=== PATIENT | male | born 1955 | race African-American/Black ===

== ENCOUNTER 2016-06-13 11:06 | Outpatient (CLI) ==
[2016-01-16 20:28] VITALS: BMI 32.9
--- NOTE | 2016-06-13 12:16 | DI ---
EXAM: Four views of the lumbar spine HISTORY: Lower back pain. COMPARISON: None FINDINGS: There is no acute compression fracture or subluxation of the lumbosacral spine. There is disc space narrowing and osteophyte formation at the lumbosacral junction. There is minimal change at L3-L4 and L4-L5. There is scattered facet arthropathy throughout the lumbar spine with narrowing at L4-L5 and L5-S1 neural foramina. The soft tissues are unremarkable. Surgical clips are noted i n right upper quadrant. IMPRESSION: 1. No acute compression fracture or subluxation of the lumbar spine. 2. Multilevel degenerative disease of the spine most pronounced L5-S1 with changes contributing to neural foraminal narrowing at L4-L5 and L5-S1.
--- NOTE | 2016-06-13 12:17 | DI ---
EXAM: Right hip two-view HISTORY: Right hip pain COMPARISON: 03/04/2015 FINDINGS: No fracture or dislocation. Mild narrowing right hip joint. Redemonstration well margin ated linear ossification medial thigh that is likely due to old trauma/heterotopic ossification. No change from prior examination. IMPERSSION: 1. No fracture or dislocation. 2. Mild osteoarthritis right hip. 3. Well marginated ossification medial thigh, likely due to old trauma/heterotopic ossification.
== END 2016-06-13 11:07 | disposition home or self-care (01) ==
LOC: RAD 11:06
PROVIDERS: ATTEND Internal Medicine
DX: M54.5 Low back pain (principal); M25.551 Pain in right hip

== ENCOUNTER 2017-05-30 12:15 | Outpatient (CLI) ==
[2016-01-16 20:28] VITALS: BMI 32.9
== END 2017-05-30 12:16 | disposition home or self-care (01) ==
LOC: LAB 12:15
PROVIDERS: ATTEND Internal Medicine
DX: E11.9 Type 2 diabetes mellitus without complications (principal)
CPT/HCPCS: 82043

== ENCOUNTER 2020-06-12 06:45 | Observation (INO) ==
--- NOTE | 2020-06-12 07:05 | ED.PDOC ---
General ED Provider: Dr. LAST PAINTER Chief Complaint: Arrhythmia Stated Complaint: my heart was beating funny Time Seen by Provider: 06/12/20 07:01 Mode of Arrival: Walk-In Information Source: Patient Primary Care Provider: SELAM SIEGEL Nursing and Triage Documentation Reviewed and Agree: Yes Does patient meet sepsis criteria?: No System Inflammatory Response Syndrome: Not Applicable Sepsis Protocol: For patient's 13 years and over: Temp is 96.8 and below OR 101 and greater Pulse >90 BPM Resp >20/minute Acutely Altered Mental Status Are patient's symptoms suggestive of a new infection, such as: -Pneumonia -Skin, Soft Tissue -Endocarditis -UTI -Bone, Joint Infection -Implantable Device -Acute Abdominal Infection -Wound Infection -Meningitis -Blood Stream Catheter Infection -Unknown Cardiovascular Complaint Exam Palpitations Complaint/Exam Onset/Duration: one week Symptoms Are: Still present Timing: Intermittent Initial Severity: Mild Current Severity: Moderate Character: Reports Irregular and Pounding Aggravating: Reports None Alleviating: Reports None Associated Signs and Symptoms: Reports Dizziness and Shortness of breath Related Surgical History: Reports CABG Cardiac Risk Factors: Reports Hypertension and Diabetes Pulmonary Embolism Risk Factors: Reports None Thyroid Exam: Normal Differential Diagnoses: CAD and Hypokalemia Quality Indicator For Non-Traumatic Chest Pain/Syncope: EKG Performed Review of Systems Review Of Systems Constitutional: Reports No symptoms Eyes: Reports No symptoms Ears, Nose, Mouth, Throat: Reports No symptoms Respiratory: Reports No symptoms Cardiac: Reports Palpitations GI: Reports No symptoms : Reports No symptoms Musculoskeletal: Reports No symptoms Skin: Reports No symptoms Neurological: Reports No symptoms Endocrine: Reports No symptoms Hematologic/Lymphatic: Reports No symptoms All Other Systems: Reviewed and Negative [facility] Social History Smoking and tobacco status: Current some day smoker Physical Exam Physical Exam Appearance: Reports Well-appearing Ill-appearing: None Pain Distress: None Eyes: Reports JORGE LUIS, EOMI and Conjunctiva clear ENT: Reports Ears normal, Nose normal and Oropharynx normal Neck: Supple Respiratory: Reports Airway patent, Breath sounds clear and Breath sounds equal Cardiovascular: Reports RRR, Pulses normal, No rub and No murmur GI/: Reports Soft, Nontender, No masses and Bowel sounds normal Musculoskeletal: Reports Normal strength, ROM intact, No edema and No calf tenderness Skin: Reports Warm, Dry and Normal color Neurological: Reports Sensation intact, Motor intact, Reflexes intact, Cranial nerves intact, Alert and Oriented Psychiatric: Reports Affect appropriate and Mood appropriate Interpretation Radiology Interpretation Radiology Interpretation By: Radiologist Radiology Results: Negative Exam Interpreted: Portable CXR EKG Interpretation Time of EKG #1: 08:09 Rate: Normal Rhythm: Sinus Ectopy: None [place]: NL ST Segment: Normal Interpretation: nsr Re-Evaluation Re-Evaluation Time of Re-Evaluation: 08:09 Status: Improved Vital Signs Stable: Yes Pain Level: 0 Appearance: NAD Lungs: Clear Skin: Warm and Dry Neuro: Alert and Oriented X3 CV: RRR Physician Notification Case Discussed Physician Notified: dr siegel Time of Notification: 08:10 Critical Care Note Critical Care Note Total Critical Care Time (mins): 15 Course Course Hematology/Chemistry: 06/12/20 07:07 06/12/20 07:07 Orders, Labs, Meds: Lab Review 06/12/20 06/12/20 06/12/20 07:07 07:07 07:07 WBC 8.72 RBC 4.61 L Hgb 14.2 Hct 39.8 L MCV 86.3 MCH 30.8 MCHC 35.7 H RDW Coeff of Funmilayo 14.8 Plt Count 206 Immature Gran % (Auto) 0.5 Neut % (Auto) 66.3 Lymph % (Auto) 20.9 [place] % (Auto) 10.0 Eos % (Auto) 1.7 Baso % (Auto) 0.6 Neut # (Auto) 5.8 Lymph # (Auto) 1.8 [place] # (Auto) 0.9 Eos # (Auto) 0.2 Baso # (Auto) 0.1 Immature Gran # (Auto) 0.0 Sodium 140.3 Potassium 3.62 Chloride 103.7 Carbon Dioxide 28.9 Anion Gap 11.32 BUN 19.6 Creatinine 1.23 H Estimated GFR (MDRD) 72.00 BUN/Creatinine Ratio 15.93 Glucose 130.8 H Calcium 8.79 Magnesium 1.68 Total Bilirubin 0.39 AST 29.7 ALT 32.0 Alkaline Phosphatase 78.9 Total Creatine Kinase 254.3 H CK-MB (CK-2) 2.520 H CK-MB (CK-2) % 0.9900 Troponin I < 0.012 Total Protein 7.28 Albumin 4.20 Globulin 3.08 Albumin/Globulin Ratio 1.36 TSH Free T4 0.73 L 04/25/21 07:07 WBC RBC Hgb Hct MCV MCH MCHC RDW Coeff of Funmilayo Plt Count Immature Gran % (Auto) Neut % (Auto) Lymph % (Auto) [place] % (Auto) Eos % (Auto) Baso % (Auto) Neut # (Auto) Lymph # (Auto) [place] # (Auto) Eos # (Auto) Baso # (Auto) Immature Gran # (Auto) Sodium Potassium Chloride Carbon Dioxide Anion Gap BUN Creatinine Estimated GFR (MDRD) BUN/Creatinine Ratio Glucose Calcium Magnesium Total Bilirubin AST ALT Alkaline Phosphatase Total Creatine Kinase CK-MB (CK-2) CK-MB (CK-2) % Troponin I Total Protein Albumin Globulin Albumin/Globulin Ratio TSH 1.570 Free T4 Orders Category Date Time Status EKG-(ED ONLY) Stat CARDIO 06/12/20 06:57 Completed ED INDUSTRIAL [employer]GY ENGINEER APPLIED .ONCE EMERGENCY 06/12/20 06:57 Active CBC W/ AUTO DIFF Stat LAB 06/12/20 07:07 Completed COMPREHENSIVE METABOLIC PANEL Stat LAB 06/12/20 07:07 Completed CREATINE KINASE Stat LAB 06/12/20 07:07 Completed FREE T4 (FREE THYROXINE) Stat LAB 06/12/20 07:07 Completed MAGNESIUM Stat LAB 06/12/20 07:07 Completed RESPIRATORY PANEL 2.1 (PCR) Stat LAB 06/12/20 07:20 Received THYROID STIMULATING HORMONE Stat LAB 06/12/20 07:07 Completed TROPONIN I Stat LAB 06/12/20 07:07 Completed 0.9 % Sodium Chloride [Saline Flush] MEDS 06/12/20 06:57 Active 1 syr IVF PRN PRN CHEST, 1V AP ONLY Stat RADS 06/12/20 06:57 Completed Medications Generic Name Dose Route Start Last Admin Trade Name Freq PRN Reason Stop Dose Admin Sodium Chloride 1 syr 06/12/20 06:57 0.9% Sodium Chloride 10 Ml Disp.Syrin IVF PRN PRN To flush IV Vital Signs: Temp Pulse Resp BP Pulse Ox 06/12/20 06:46 97.7 F 88 18 164/81 H 97 CHICHO Risk Score CHICHO Risk Score: Risk Score Odds of by 30D 0 0.1 (0.1-0.2) 1 0.3 (0.2-0.3) 2 0.4 (0.3-0.5) 3 0.7 (0.6-0.9) 4 1.2 (1.0-1.5) 5 2.2 (1.9-2.6) 6 3.0 (2.5-3.6) 7 4.8 (3.8-6.1) Discharge Plan Discharge Patient Disposition: PLACED OBSERVATION Discharge Problem: Dysthymia Prescriptions: No Action metformin 500 MG tablet 500 mg PO BIDWM RF: 0 diltiazem HCl 90 MG tablet 180 mg PO BID RF: 0 metoprolol succinate [Toprol XL] 50 MG tablet extended release 24 hr 50 mg PO DAILY RF: 0 pravastatin 40 mg Tablet 40 mg PO DAILY RF: 0 chlorthalidone 50 mg Tablet 50 mg PO DAILY RF: 0 aspirin 81 mg Tablet,Delayed Release (Dr/Ec) 81 mg PO DAILY RF: 0 ascorbic acid (vitamin C) [Vitamin C] 500 mg Tablet 500 mg PO DAILY RF: 0 benazepril 40 mg Tablet 40 mg PO DAILY RF: 0 cholecalciferol (vitamin D3) [Vitamin D3] 125 mcg (5,000 unit) Tablet 125 mcg PO DAILY RF: 0 ED Provider: LAST PAINTER Condition: Good Physician Progress Note: []
[2020-06-12 07:08] LABS: BASOPHILS # (AUTO) 0.1 K/uL (0-0.2); BASOPHILS % (AUTO) 0.6 % (0.0-3.0); EOSINOPHILS # (AUTO) 0.2 K/ul (0.0-0.7); EOSINOPHILS % (AUTO) 1.7 % (0.0-7.0); HEMATOCRIT 39.8 % (42.0-52.0); HEMOGLOBIN 14.2 g/dl (14.0-18.0); IMMATURE GRANULOCYTE % (AUTO) 0.5 % (0.0-5.0); LYMPHOCYTES # (AUTO) 1.8 K/uL (0.60-3.4); LYMPHOCYTES % (AUTO) 20.9 (10.0-50.0); MEAN CORPUSCULAR HEMOGLOBIN 30.8 pg (27.0-31.0); MEAN CORPUSCULAR HGB CONC 35.7 (31.8-35.4); MEAN CORPUSCULAR VOLUME 86.3 fl (80.0-94.0); MONOCYTES # (AUTO) 0.9 K/uL (0.4-2.0); NEUTROPHILS # (AUTO) 5.8 K/ul (2.0-6.9); NEUTROPHILS % (AUTO) 66.3 % (42.2-75.2); PLATELET COUNT 206 10^3/uL (140-440); RDW COEFFICIENT OF VARIATION 14.8 % (11.6-14.8); RED BLOOD COUNT 4.61 10^6/ul (4.70-6.10); WHITE BLOOD COUNT 8.72 K/ul (4.2-10.2)
[2020-06-12 07:21] LABS: ALKALINE PHOSPHATASE 78.9 U/L (56-119); ASPARTATE AMINO TRANSFERASE 29.7 U/L (17-59); BILIRUBIN,TOTAL 0.39 mg/dL (0.2-1.3); BLOOD UREA NITROGEN 19.6 mg/dL (9-20); CALCIUM 8.79 mg/dL (8.4-10.2); CARBON DIOXIDE 28.9 mmol/L (22-30.0); CHLORIDE 103.7 mmol/L (98-107); CREATINE KINASE 254.3 U/L (55-170); CREATININE 1.23 mg/dL (0.60-1.10); GLUCOSE 130.8 mg/dL (74-106); MAGNESIUM 1.68 mg/dL (1.6-2.3); POTASSIUM 3.62 mmol/L (3.5-5.1); SODIUM 140.3 mmol/L (134.5-145); TOTAL PROTEIN 7.28 g/dL (6.3-8.2)
--- NOTE | 2020-06-12 07:24 | DI ---
EXAM: Single frontal view of the chest HISTORY: Palpitation. COMPARISON: Chest x-ray 09/13/2012 and multiple priors FINDINGS: Cardiomediastinal silhouette is unchanged with intact sternotomy wires. There is no pneumo thorax or effusion. There is no consolidation, nodule or mass. The osseous structures are unremarka ble. IMPRESSION: No acute cardiopulmonary process
[2020-06-12 07:32] LABS: TROPONIN I < 0.012 ng/ml (0.0000-0.120)
[2020-06-12 07:34] LABS: BORDETELLA PARAPERTUSSIS (PCR) NOT DETECTED (NOT DETECT); BORDETELLA PERTUSSIS (PCR) NOT DETECTED (NOT DETECT); CHLAMYDIA PNEUMONIAE (PCR) NOT DETECTED (NOT DETECT); CORONAVIRUS 229E (PCR) NOT DETECTED (NOT DETECT); CORONAVIRUS HKU1 (PCR) NOT DETECTED (NOT DETECT); CORONAVIRUS NL63 (PCR) NOT DETECTED (NOT DETECT); CORONAVIRUS OC43 (PCR) NOT DETECTED (NOT DETECT); HUMAN METAPNEUMOVIRUS (PCR) NOT DETECTED (NOT DETECT); HUMAN RHINOVIRUS/ENTEROV (PCR) NOT DETECTED (NOT DETECT); INFLUENZA B (PCR) NOT DETECTED (NOT DETECT); MYCOPLASMA PNEUMONIAE (PCR) NOT DETECTED (NOT DETECT); PARAINFLUENZA VIRUS 1 (PCR) NOT DETECTED (NOT DETECT); PARAINFLUENZA VIRUS 2 (PCR) NOT DETECTED (NOT DETECT); PARAINFLUENZA VIRUS 3 (PCR) NOT DETECTED (NOT DETECT); PARAINFLUENZA VIRUS 4 (PCR) NOT DETECTED (NOT DETECT); RESPIRATORY SYNCYTIAL V (PCR) NOT DETECTED (NOT DETECT); SARS_COV_2 (PCR) NOT DETECTED (NOT DETECT)
[2020-06-12 08:23] LABS: ADENOVIRUS (PCR) NOT DETECTED (NOT DETECT)
[2020-06-12] MEDS ORDERED: CARDIZEM PO SCH (09:00)
[2020-06-12 09:34] VITALS: BMI 32.3
[2020-06-12] MEDS: LOVENOX SUBCUT SCH (09:47)
[2020-06-12] MEDS: TOPROL XL PO SCH (10:04)
[2020-06-12] MEDS: PRAVACHOL PO SCH (10:04)
[2020-06-12] MEDS: VITAMIN C PO SCH (10:04)
[2020-06-12] MEDS: GLUCOPHAGE PO SCH ×2 (10:04→17:13)
[2020-06-12] MEDS: ASPIRIN EC PO SCH (10:04)
[2020-06-12] MEDS: LOTENSIN PO SCH (10:04)
[2020-06-12] MEDS: CARDIZEM PO SCH ×2 (10:05→20:44)
[2020-06-12] MEDS: VITAMIN D PO SCH (10:05)
[2020-06-12] MEDS: CHLORTHALIDONE 50 MG PO SCH (10:05)
[2020-06-12 14:34] LABS: CREATINE KINASE 202.3 U/L (55-170)
[2020-06-12 14:47] LABS: TROPONIN I < 0.012 ng/ml (0.0000-0.120)
[2020-06-12 22:41] LABS: CREATINE KINASE 160.9 U/L (55-170)
[2020-06-12 22:55] LABS: TROPONIN I < 0.012 ng/ml (0.0000-0.120)
[2020-06-13 05:30] LABS: BASOPHILS % (AUTO) 0.3 % (0.0-3.0); EOSINOPHILS # (AUTO) 0.2 K/ul (0.0-0.7); EOSINOPHILS % (AUTO) 2.4 % (0.0-7.0); HEMATOCRIT 36.9 % (42.0-52.0); HEMOGLOBIN 13.1 g/dl (14.0-18.0); IMMATURE GRANULOCYTE % (AUTO) 0.3 % (0.0-5.0); LYMPHOCYTES # (AUTO) 2.1 K/uL (0.60-3.4); LYMPHOCYTES % (AUTO) 29.4 (10.0-50.0); MEAN CORPUSCULAR HEMOGLOBIN 30.5 pg (27.0-31.0); MEAN CORPUSCULAR HGB CONC 35.5 (31.8-35.4); MEAN CORPUSCULAR VOLUME 85.8 fl (80.0-94.0); MONOCYTES # (AUTO) 1.1 K/uL (0.4-2.0); MONOCYTES % (AUTO) 14.7 (0-10); NEUTROPHILS # (AUTO) 3.8 K/ul (2.0-6.9); NEUTROPHILS % (AUTO) 52.9 % (42.2-75.2); PLATELET COUNT 188 10^3/uL (140-440); RDW COEFFICIENT OF VARIATION 14.9 % (11.6-14.8)
[2020-06-13 05:45] LABS: ALANINE AMINOTRANSFERASE 24.2 U/L (0-50); ALBUMIN 3.56 g/dL (3.5-5.0); ALKALINE PHOSPHATASE 57.2 U/L (56-119); ASPARTATE AMINO TRANSFERASE 21.7 U/L (17-59); BILIRUBIN,TOTAL 0.39 mg/dL (0.2-1.3); CALCIUM 8.69 mg/dL (8.4-10.2); CARBON DIOXIDE 25.2 mmol/L (22-30.0); CHLORIDE 107.8 mmol/L (98-107); CREATININE 1.16 mg/dL (0.60-1.10); POTASSIUM 3.84 mmol/L (3.5-5.1); SODIUM 139.2 mmol/L (134.5-145); TOTAL PROTEIN 6.32 g/dL (6.3-8.2)
--- NOTE | 2020-06-13 09:17 | PCM.PROG ---
Attending Provider: ATTENDING PROVIDER: Dr. SELAM COLLINS This patient is seen with Stephania Avelar, Nurse Practitioner. DATE OF SERVICE: 06/13/20 SUBJECTIVE: This 64 year old AA/BLACK M was hospitalized 06/12/20. The patient is resting comfortably. He is feeling good. Only a few palpitations through the night. No associated chest pain, shortness of breath or dizziness. Ready to go home. REVIEW OF SYSTEMS: CONSTITUTIONAL: No night sweats. No fatigue, malaise, lethargy. No fever or chills. HEENT: Eyes: No visual changes. No eye pain. No eye discharge. ENT: No runny nose. No epistaxis. No sinus pain. No odynophagia. No congestion. RESPIRATORY: No cough, no congestion. No hemoptysis. No shortness of breath. CARDIOVASCULAR: No angina symptoms. No CHF symptoms. No atypical chest pain for CAD. Palpitations. No orthopnea.. GASTROINTESTINAL: No abdominal pain. No nausea or vomiting. No diarrhea or constipation. No hematemesis. No hematochezia. GENITOURINARY: No urgency. No frequency. No dysuria. No hematuria. No obstructive symptoms. No discharge. No pain. No significant abnormal bleeding. MUSCULOSKELETAL: No musculoskeletal pain; no joint swelling. NEUROLOGICAL: Awake, alert, oriented to time, place and person. No headache. No neck pain. No syncope. No seizures. No dizziness. PSYCHIATRIC: Not anxious. No depression. No suicidal thoughts. No homicidal thoughts. SKIN: No rash. No lesions. No wounds. ENDOCRINE: No unexplained weight loss. No weight gain. HEMATOLOGIC/LYMPHATIC: No anemia. No purpura. No petechiae. No prolonged or excessive bleeding. No palpable lymph nodes. PHYSICAL EXAMINATION: GENERAL: The patient is awake, alert and oriented, lying in bed in no distress. VITAL SIGNS: Temperature 97.1 F, Pulse 57, Respiratory Rate 18, BP 109/63, Pulse Ox 98% HEENT: Head normocephalic, atraumatic. Eyes: Extraocular muscles are intact. Pupils are equal, round and reactive to light and accommodation. Ears: No lesions. Nose appeared normal. Throat: No exudate or erythema. NECK: Supple. No JVD, no carotid bruit. No lymphadenopathy or thyromegaly. LUNGS: Diminished breath sounds. Clear to auscultation. Percussion note normal. Chest symmetrical. HEART: S1, S2, no S3. No murmurs. No cyanosis or clubbing. No ascites. Pulses: Dorsalis pedis and posterior tibial pulses +1 to +2 both sides. ABDOMEN: Soft. Non-tender. Bowel sounds active. No CVA tenderness. No mass felt. EXTREMITIES: No edema. Full range of motion of all extremities, equal. NEUROLOGIC: No focal deficit. Cranial nerves II through XII are grossly intact. No headache. No double vision. SKIN: Not dry. Intact. Turgor-normal. LYMPHATIC: No palpable lymph nodes/no lymphedema. MUSCULOSKELETAL: Normal joints with no swelling. Muscle tone is normal. LAB REVIEW: 06/13/20 05:15 06/13/20 05:15 06/13/20 05:15: Sodium 139.2, Potassium 3.84, Chloride 107.8 H, Carbon Dioxide 25.2, Anion Gap 10.04, BUN 18.0, Creatinine 1.16 H, Estimated GFR (MDRD) 77.00, BUN/Creatinine Ratio 15.51, Glucose 110.0 H, Calcium 8.69, Total Bilirubin 0.39, AST 21.7, ALT 24.2, Alkaline Phosphatase 57.2, Total Protein 6.32, Albumin 3.56, Globulin 2.76, Albumin/Globulin Ratio 1.28 06/13/20 05:15: WBC 7.20, RBC 4.30 L, Hgb 13.1 L, Hct 36.9 L, MCV 85.8, MCH 30.5, MCHC 35.5 H, RDW Coeff of Funmilayo 14.9 H, Plt Count 188, Immature Gran % (Auto) 0.3, Neut % (Auto) 52.9, Lymph % (Auto) 29.4, [place] % (Auto) 14.7 H, Eos % (Auto) 2.4, Baso % (Auto) 0.3, Neut # (Auto) 3.8, Lymph # (Auto) 2.1, [place] # (Auto) 1.1, Eos # (Auto) 0.2, Baso # (Auto) 0.0, Immature Gran # (Auto) 0.0 06/12/20 22:25: Total Creatine Kinase 160.9, CK-MB (CK-2) 1.530, CK-MB (CK-2) % 0.9500, Troponin I < 0.012 06/12/20 14:10: Total Creatine Kinase 202.3 H, CK-MB (CK-2) 2.170, CK-MB (CK-2) % 1.0700, Troponin I < 0.012 06/12/20 07:20: Adenovirus (PCR) Not detected, B. pertussis DNA (PCR) Not detected, B.parapertussis DNA PCR Not detected, C. pneumoniae DNA (PCR) Not detected, Coronavirus OC43 (PCR) Not detected, Coronavirus HKU1 (PCR) Not detected, Coronavirus 229E (PCR) Not detected, Coronavirus NL63 (PCR) Not detected, Human Metapneumovir PCR Not detected, Influenza Type A (PCR) Not detected, Influenza B (RT-PCR) Not detected, M. pneumoniae (PCR) Not detected, Parainfluenza 1 (PCR) Not detected, Parainfluenza 2 (PCR) Not detected, Parainfluenza 3 (PCR) Not detected, Parainfluenza 4 (PCR) Not detected, RSV (PCR) Not detected, Entero/Rhino (PCR) Not detected, SARS-CoV-2 (PCR) Not detected ASSESSMENT: Please see below. 1. Palpitations 2. Chronic kidney disease stage 2 3. Diabetes Mellitus type 2 4. Dyslipidemia PLAN: 1. Discharge this afternoon 2. Holter Monitor as an outpatient. Plan and coordination of the patient's care discussed in the presence of Wooden Fence Erector and nurse. SCRIBED BY: [place] AGUILERAist scribed while in presence of service performed by Dr. Collins/Stephania Avelar APRN on 06/13/20 ([id number])
[2020-06-13] MEDS: VITAMIN C PO SCH (09:46)
[2020-06-13] MEDS: TOPROL XL PO SCH (09:47)
[2020-06-13] MEDS: CARDIZEM PO SCH (09:47)
[2020-06-13] MEDS: VITAMIN D PO SCH (09:47)
[2020-06-13] MEDS: GLUCOPHAGE PO SCH (09:48)
[2020-06-13] MEDS: CHLORTHALIDONE 50 MG PO SCH (09:48)
[2020-06-13] MEDS: PRAVACHOL PO SCH (09:48)
[2020-06-13] MEDS: ASPIRIN EC PO SCH (09:48)
[2020-06-13] MEDS: LOTENSIN PO SCH (09:48)
[2020-06-13] MEDS: LOVENOX SUBCUT SCH (09:53)
[2020-06-13 10:50] VITALS: BP 132/83; TEMP 97.8
--- NOTE | 2020-06-13 13:15 | HP ---
DATE OF SERVICE: 06/12/20 - ADMISSION NOTE SUBJECTIVE: Mr. Ryees was seen in the emergency room by ER attending and also by me as the patient came to the emergency room with complaint of having palpitations more like feeling a skipped beat lasting 15 to 20 minutes early this morning. According to the patient he has been feeling that way the past several months 3 to 4 times a week anywhere from 10 to 30 minutes, feels as if the heart pauses or goes fast in a row type of feeling. The patient has coronary artery disease, hypertension, dyslipidemia. Reluctantly agreed to be hospitalized under observation. PHYSICAL EXAMINATION: HEENT: Head normocephalic, atraumatic. Eyes: Extraocular muscles are intact. Pupils are equal, round and reactive to light and accommodation. Ears: No lesions. Nose appeared normal. Throat: No exudate or erythema. NECK: Supple. No JVD, no carotid bruit. No lymphadenopathy or thyromegaly. LUNGS: On auscultation lungs are clear. Percussion note normal. Chest symmetrical. HEART: S1, S2, no S3. No murmurs. No cyanosis or clubbing. No ascites. Pulses: Dorsalis pedis and posterior tibial pulses +2 bilaterally. ABDOMEN: Soft. Nontender. Bowel sounds active. No CVA tenderness. No mass felt. EXTREMITIES: No pedal edema. Full range of motion of all extremities, equal. NEUROLOGIC: No focal deficit. Cranial nerves II through XII are grossly intact. No headache. No double vision. SKIN: Not dry. Intact. Turgor - normal. LYMPHATIC: No palpable lymph nodes/no lymphedema. MUSCULOSKELETAL: Normal joints with no swelling. Muscle tone is normal. LABS: EKG sinus rhythm, poor R wave progression. No arrhythmias noted. Cardiac markers negative. ASSESSMENT: 1. Feeling of palpitation, feels more like PVCs. 2. History of coronary artery disease. 3. Hypertension. 4. Dyslipidemia. PLAN: 1. Have telemetry and follow up with cardiac markers. The patient had no symptoms of CHF or coronary insufficiency. The patient's cardiac workup done a few weeks ago with echo and stress echo was negative for ischemia. CONDITION: Stable. TIME SPENT: More than 30 minutes. Plan and coordination of the patient's care discussed in the presence of nurse. JARVIS
--- NOTE | 2020-06-15 14:46 | HOLTER ---
PATIENT INFORMATION AND COMMENTS Attending Physician: DR. SELAM COLLINS Indications: PALPITATIONS __ Patient Medications: CHOLECALCIFEROL, ASA, ASCORBIC ACID, BENAZEPRIL, CHLORTHALIDONE, DILTIAZEM, PRAVASTATIN, METOPROLOL, METFORMIN __ Pre-procedure Summary: Protocol: Standard Heart Rate Started: 06/12/2020 102 Minimum: 42 BPM Weight: 238 LBS Ended: 06/13/2020 1026 Maximum: 144 BPM Height: 72" Duration: 24 HOURS Average: 67 BPM _ INTERPRETATIONS/OBSERVATIONS: 1. BASIC RHYTHM: SINUS RATE 42 BPM TO 110 BPM, AVERAGE 65 BPM 2. INFREQUENT PVC'S/ PAC'S NOTED, 1 TO 2% OF BEATS SCANNED 3. ISOELECTRIC DISSOCIATION NOTED, FEW BEATS WITH RATE [address]-T WAVE CHANGES FROM BASELINE 5. ACTIVITY LOG--BLANK MTDD
--- NOTE | 2020-06-20 13:45 | PN ---
DATE OF SERVICE: 06/13/2020 SUBJECTIVE: The patient was seen and examined this morning. The patient doesn't have any palpitation. He has infrequent PVC. No V-tach or SVT noted. Cardiac markers are negative. TIME SPENT: More than 30 minutes. Plan and coordination of the patient's care discussed in the presence of nurse. JARVIS
--- NOTE | 2020-06-20 13:46 | PN ---
06/12/2020: Level 5 06/13/2020: D as in discharge MTDD
--- NOTE | 2020-06-23 14:23 | SSS ---
DATE OF SERVICE: 06/12/20 (ADMIT); 06/13/20 (DISCHARGE) REASON FOR CONSULTATION/ADMISSION: Palpitations. HISTORY OF PRESENT ILLNESS: 64-year-old male who presented to the ER with "fluttering in chest" onset a.m. (1 hr). Reports occasional fluttering for the past month. No pain. REVIEW OF SYSTEMS: CONSTITUTIONAL: No night sweats. No fatigue, malaise, lethargy. No fever or chills. HEENT: Eyes: No visual changes. No eye pain. No eye discharge. ENT: No runny nose. No epistaxis. No sinus pain. No sore throat. No odynophagia. No ear pain. No congestion. RESPIRATORY: No cough, no congestion. No hemoptysis. Shortness of breath. CARDIOVASCULAR: No angina symptoms. No CHF symptoms. No atypical chest pain for CAD. Palpitations - intermittent. No orthopnea. GASTROINTESTINAL: No abdominal pain. No nausea or vomiting. No diarrhea or constipation. No hematemesis. No hematochezia. GENITOURINARY: No dysuria. No hematuria. No obstructive symptoms. No discharge. No pain. No significant abnormal bleeding. MUSCULOSKELETAL: No musculoskeletal pain. No joint swelling. NEUROLOGICAL: Awake, alert, oriented to time, place and person. No headache. No neck pain. No syncope. No seizures. No dizziness. PSYCHIATRIC: Not anxious. No depression. No suicidal thoughts. No homicidal thoughts. SKIN: No rash. No lesions. No wounds. ENDOCRINE: No unexplained weight loss. No weight gain. HEMATOLOGIC/LYMPHATIC: No anemia. No purpura. No petechiae. No prolonged or excessive bleeding. No palpable lymph nodes. PAST MEDICAL HISTORY: Hypertension Coronary artery disease NE Dyslipidemia Diabetes mellitus type 2 Cardiac stent CABG 4 vessel Cholecystectomy Osteoarthritis PERSONAL/FAMILY HISTORY/SOCIAL HISTORY: Single, lives alone. Employed. Smoker - occasional cigar. Independent with ADLs. Family history: Cancer, diabetes mellitus type 2, heart surgery. PHYSICAL EXAMINATION: GENERAL: The patient is a black male, age 64. Height 6', weight 238 lbs, BMI 32.3. VITAL SIGNS: Temperature 97.1, pulse 77, respiratory rate 18. BP (L) 152/84, (R) 148/80. 02 SAT 100% RA. HEENT: Head normocephalic, atraumatic. Eyes: Extraocular muscles are intact. Pupils are equal, round and reactive to light and accommodation. Ears: No lesions. Nose appeared normal. Throat: No exudate or erythema. NECK: Supple. No JVD, no carotid bruit. No lymphadenopathy or thyromegaly. LUNGS: Diminished breath sounds. Clear to auscultation. Percussion note normal. Chest symmetrical. HEART: S1, S2, no S3. Regular rate and rhythm. No murmurs. No cyanosis or clubbing. No ascites. Pulses: Dorsalis pedis and posterior tibial pulses +1 to +2 bilaterally. ABDOMEN: Soft. Nontender. Bowel sounds active. No CVA tenderness. No mass felt. EXTREMITIES: No edema. Full range of motion of all extremities, equal. NEUROLOGIC: No focal deficit. Cranial nerves II through XII are grossly intact. No headache, no double vision or headache. SKIN: Not dry. Intact. Turgor - normal. LYMPHATIC: No palpable lymph nodes/no lymphedema. MUSCULOSKELETAL: Normal joints with no swelling. Muscle tone is normal. Old/present records reviewed Office records reviewed. EDUCATION CARRIED OUT ABOUT: Discontinue caffeine use. ALLERGIES: NKDA MEDICATIONS: Vitamin D3 ASA Vitamin C Benazepril Chlorthalidone Cardizem Pravastatin Metoprolol Succinate Metformin LABS/EKG'S/X-RAY/ECHO/ABG: WBC 8.72, hemoglobin 14.2, platelets 206, hematocrit 39.8. CPK 254.3, CK-MB 2.520. Sodium 140.3, chloride 103.7, BUN 19.6, glucose 130.8, K+ 3.62, c02 28.9, creatinine 1.23. Troponin less than 0.012, free T4 0.73. Chest x-ray, no acute process. PROGRESS NOTES: See EMR. DIAGNOSES: 1. PALPITATIONS 2. HYPERTENSION 3. DIABETES MELLITUS TYPE 2 4. OBESITY RECOMMENDATIONS/PLAN: 1. 06/13/20 discharge home. 2. No prescriptions. 3. Continue home medications. 4. Home with holter monitor times 24 hours. 5. Office appointment June 20 at 11:[address] Bruno/Stephania Avelar APRN. TIME SPENT: More than 70 minutes. [facility]
== END 2020-06-13 12:57 | disposition home or self-care (01) ==
LOC: ED 06:45 → MEDSURG A 06:45
PROVIDERS: ADMIT Internal Medicine; ATTEND Internal Medicine
DX: I25.10 Atherosclerotic heart disease of native coronary artery without angina pectoris; N18.2 Chronic kidney disease, stage 2 (mild); Z20.822 Contact with and (suspected) exposure to COVID-19; E11.9 Type 2 diabetes mellitus without complications; R42 Dizziness and giddiness; F34.1 Dysthymic disorder; R06.02 Shortness of breath; I10 Essential (primary) hypertension; R00.2 Palpitations; E78.5 Hyperlipidemia, unspecified; E66.9 Obesity, unspecified